=== PATIENT | female | born 1945 | race Caucasian/White ===

== ENCOUNTER 2018-02-07 22:48 | Inpatient (IN) | payer OTHER, MEDICAID ==
[~2018-02-07] VITALS: Ht 165.1 cm; Wt 102.5 kg
[2018-02-07 23:23] LABS: EOSINOPHILS % (AUTO) 0.2 % (0.0-6.0); HEMATOCRIT 35 % (33-45); HEMOGLOBIN 11.1 g/dL (11.5-14.8); LYMPHOCYTES # (AUTO) 0.5 /CMM (0.8-4.8); LYMPHOCYTES % (AUTO) 4.8 % (20.0-44.0); MEAN CORPUSCULAR HEMOGLOBIN 30 PG (26.0-33.0); MEAN CORPUSCULAR HGB CONC 32 g/dl (31.0-36.0); MEAN CORPUSCULAR VOLUME 94 fL (82-100); MONOCYTES # (AUTO) 0.1 /CMM (0.1-1.30); NEUTROPHILS # (AUTO) 9.3 /CMM (1.8-8.9); PLATELET COUNT (AUTO) 187 /CMM (150-450); RDW COEFFICIENT OF VARIATION 16.1 (11.5-15.0); RED BLOOD CELL COUNT(AUTO) 3.72 MIL/uL (4.0-5.2); WHITE BLOOD COUNT (AUTO) 9.9 K/uL (4.3-11.0)
[2018-02-07] MEDS ORDERED: IPRATROPIUM NEB FS 0.5 MG/2.5 ML AMPUL.NEB NEB ONE (23:30)
[2018-02-07] MEDS ORDERED: ALBUTEROL FS 2.5 MG/3 ML VIAL.NEB NEB ONE (23:30)
[2018-02-07] MEDS ORDERED: methylPREDNISolone SOD SUCC 125 MG/2ML VIAL IV ONE (23:30)
[2018-02-07] MEDS ORDERED: IV NS 0.9% 500 ML BAG IV ONE (23:30)
[2018-02-07 23:33] LABS: CALCIUM, SERUM 8.7 mg/dL (8.5-10.1); CARBON DIOXIDE 32 mmol/L (21-32); CHLORIDE 103 mmol/L (98-107); GLUCOSE 140 mg/dL (74-106); SODIUM SERUM 139 mmol/L (136-145); UREA NITROGEN, BLOOD 38 mg/dL (7-18)
[2018-02-07] MEDS ORDERED: methylPREDNISolone SOD SUCC 125 MG/2ML VIAL ONE (23:34)
[2018-02-07 23:42] LABS: TROPONIN I < 0.017 ng/mL (0.00-0.056)
[2018-02-07 23:47] LABS: ALANINE AMINOTRANSFERASE 738 U/L (12-78); ALBUMIN 2.3 g/dL (3.4-5.0); ALKALINE PHOSPHATASE 436 U/L (46-116); ASPARTATE AMINOTRANSFERASE 1597 U/L (15-37); B-TYPE NATRIURETIC PEPTIDE 3655 PG/ML (0-125); BILIRUBIN,DIRECT 1.9 mg/dL (0.0-0.2); BILIRUBIN,TOTAL 2.4 mg/dL (0.2-1.0); TOTAL PROTEIN, SERUM 5.7 g/dL (6.4-8.2)
[2018-02-07] MEDS ORDERED: ALBUTEROL FS 2.5 MG/3 ML VIAL.NEB ONE (23:51)
[2018-02-07] MEDS ORDERED: IPRATROPIUM NEB FS 0.5 MG/2.5 ML AMPUL.NEB ONE (23:52)
[2018-02-08] VITALS (46 sets, daily range): BP systolic 45–144; BP diastolic 20–91
[2018-02-08 00:13] LABS: ABG BASE EXCESS 0.8 mmol/L; ABG OXYGEN SATURATION 89.2 % (92.0-98.5); ABG PCO2 75.9 mmHg (35.0-45.0); ABG PH 7.216 (7.350-7.450); ABG PO2 67.4 mmHg (75.0-100.0); AaDO2 101.2 mmHg; COHb 1.1 % (0.5-1.5); MetHb 0.3 % (0.0-1.5); SITE, ABG Right Radial; VENT MODE, BG nasal cannula
[2018-02-08] MEDS ORDERED: NITROGLYCERIN PACKET 1 GM PACKET ONE (00:20)
[2018-02-08] MEDS ORDERED: FUROSEMIDE 40 MG/4 ML VIAL ONE (00:20)
[2018-02-08] MEDS ORDERED: METRONIDAZOLE 500MG/ NS 100ML 100 ML IV ONE ×2 (00:20→06:08)
[2018-02-08] MEDS ORDERED: LEVOFLOXACIN 750 MG /D5W 150ML 150 ML IV ONE (00:20)
[2018-02-08] MEDS ORDERED: LEVOFLOXACIN 750 MG /D5W 150ML PIGGYBACK IV ONE (00:30)
[2018-02-08] MEDS ORDERED: NITROGLYCERIN PACKET 1 GM PACKET TD ONE (00:30)
[2018-02-08] MEDS ORDERED: FUROSEMIDE 40 MG/4 ML VIAL IV ONE (00:30)
[2018-02-08] MEDS ORDERED: FLAGYL/NS RTU 500 MG/100 ML PIGGYBACK IV ONE (00:30)
[2018-02-08] MEDS ORDERED: HYDR-552 PO (00:44)
[2018-02-08] MEDS ORDERED: CARV6.252 PO (00:44)
[2018-02-08] MEDS ORDERED: LACT1CAP39 PO (00:44)
[2018-02-08] MEDS ORDERED: GUAI-959 PO (00:44)
[2018-02-08] MEDS ORDERED: NA P133E RC (00:44)
[2018-02-08] MEDS ORDERED: FERR325T23 PO (00:44)
[2018-02-08] MEDS ORDERED: CALC-494 PO (00:44)
[2018-02-08] MEDS ORDERED: ATOR20TA PO (00:44)
[2018-02-08] MEDS ORDERED: MELA3TAB PO (00:44)
[2018-02-08] MEDS ORDERED: ALLO100T PO (00:44)
[2018-02-08] MEDS ORDERED: MULT-213 PO (00:44)
[2018-02-08] MEDS ORDERED: AMIN30LI27 PO (00:44)
[2018-02-08] MEDS ORDERED: OXYC10TA49 PO (00:44)
[2018-02-08] MEDS ORDERED: GABA-534 PO (00:44)
[2018-02-08] MEDS ORDERED: ALBU2.5V38 NEB (00:44)
[2018-02-08] MEDS ORDERED: BISA-79 PR (00:44)
[2018-02-08] MEDS ORDERED: CHOL200026 PO (00:44)
[2018-02-08] MEDS ORDERED: INSU100V7 SQ (00:44)
[2018-02-08] MEDS ORDERED: OMEP20TA5 PO (00:44)
[2018-02-08] MEDS ORDERED: LACT10SO PO (00:44)
[2018-02-08] MEDS ORDERED: [UNRECOGNIZED DRUG - CODE] SQ (00:44)
[2018-02-08] MEDS ORDERED: INSU100I4 SQ (00:44)
[2018-02-08] MEDS ORDERED: ASPI-1169 PO (00:44)
[2018-02-08] MEDS ORDERED: ONDA4TAB11 PO (00:44)
[2018-02-08] MEDS ORDERED: ACET-868 PO (00:44)
[2018-02-08] MEDS ORDERED: ASCO500T10 PO (00:44)
[2018-02-08] MEDS ORDERED: MAGN400O21 PO (00:44)
[2018-02-08 01:12] LABS: ABG BASE EXCESS 0.6 mmol/L; ABG OXYGEN SATURATION 89.1 % (92.0-98.5); ABG PCO2 63.9 mmHg (35.0-45.0); ABG PH 7.269 (7.350-7.450); ABG PO2 63.4 mmHg (75.0-100.0); AaDO2 75.4 mmHg; COHb 0.7 % (0.5-1.5); MetHb 0.2 % (0.0-1.5); O2Hb 88.3 % (94.0-97.0); SITE, ABG Left Radial; VENT MODE, BG BIPAP 22/5 30% BR 18
[2018-02-08] MEDS ORDERED: HYDROMORPHONE 1 MG/1 ML DISP.SYRIN IV PRN (03:00)
[2018-02-08] MEDS ORDERED: ALBUTEROL FS 2.5 MG/3 ML VIAL.NEB NEB PRN (03:00)
[2018-02-08] MEDS ORDERED: IV NS 0.9% 1,000 ML IV SCH (03:00)
[2018-02-08] MEDS ORDERED: HYDROMORPHONE INJ 2 MG/ML DISP.SYRIN ONE (03:27)
[2018-02-08] MEDS ORDERED: DEXTROSE 50%-WATER 50 ML DISP.SYRIN IV PRN (03:30)
[2018-02-08] MEDS ORDERED: HYDROMORPHONE INJ 2 MG/ML DISP.SYRIN IV PRN (03:34)
[2018-02-08 05:33] LABS: HEMATOCRIT 34 % (33-45); HEMOGLOBIN 10.6 g/dL (11.5-14.8); LYMPHOCYTES # (AUTO) 0.4 /CMM (0.8-4.8); MEAN CORPUSCULAR HEMOGLOBIN 30 PG (26.0-33.0); MEAN CORPUSCULAR HGB CONC 32 g/dl (31.0-36.0); MEAN CORPUSCULAR VOLUME 95 fL (82-100); MONOCYTES # (AUTO) 0.1 /CMM (0.1-1.30); MONOCYTES % (AUTO) 0.5 % (2.0-12.0); NEUTROPHILS # (AUTO) 12.6 /CMM (1.8-8.9); NEUTROPHILS % (AUTO) 96.5 % (43.0-81.0); PLATELET COUNT (AUTO) 156 /CMM (150-450); RDW COEFFICIENT OF VARIATION 15.9 (11.5-15.0); RED BLOOD CELL COUNT(AUTO) 3.54 MIL/uL (4.0-5.2); WHITE BLOOD COUNT (AUTO) 13.1 K/uL (4.3-11.0)
[2018-02-08] MEDS: INSULIN REGULAR, HUMAN 100 UNIT/ML 3 ML VIAL SQ PRN ×2 (05:34→18:27)
[2018-02-08] MEDS: BLOOD SUGAR DIAGNOSTIC 1 EACH STRIP IN SCH ×3 (05:36→17:34)
[2018-02-08 05:58] LABS: ALANINE AMINOTRANSFERASE 749 U/L (12-78); ALBUMIN 2.2 g/dL (3.4-5.0); ALKALINE PHOSPHATASE 472 U/L (46-116); ASPARTATE AMINOTRANSFERASE 1128 U/L (15-37); BILIRUBIN,TOTAL 3.2 mg/dL (0.2-1.0); CALCIUM, SERUM 8.6 mg/dL (8.5-10.1); CARBON DIOXIDE 28 mmol/L (21-32); CHLORIDE 102 mmol/L (98-107); CREATININE 1.2 mg/dL (0.6-1.3); GLUCOSE 210 mg/dL (74-106); POTASSIUM 4.5 mmol/L (3.5-5.1); SODIUM SERUM 138 mmol/L (136-145); TOTAL PROTEIN, SERUM 5.6 g/dL (6.4-8.2); UREA NITROGEN, BLOOD 41 mg/dL (7-18)
[2018-02-08] MEDS ORDERED: BLOOD SUGAR DIAGNOSTIC 1 EACH STRIP IN SCH (06:00)
[2018-02-08] MEDS ORDERED: ALBUTEROL FS 2.5 MG/3 ML VIAL.NEB NEB SCH (06:00)
[2018-02-08] MEDS ORDERED: methylPREDNISolone SOD SUCC 40 MG/ML VIAL IV SCH (06:00)
[2018-02-08] MEDS ORDERED: METRONIDAZOLE 500MG/ NS 100ML 500 MG in PREMIX 1 EA IV SCH (07:00)
[2018-02-08 08:21] LABS: ABG BASE EXCESS 1.3 mmol/L; ABG OXYGEN SATURATION 91.4 % (92.0-98.5); ABG PCO2 72.8 mmHg (35.0-45.0); ABG PH 7.234 (7.350-7.450); ABG PO2 70.8 mmHg (75.0-100.0); AaDO2 42.9 mmHg; COHb 0.6 % (0.5-1.5); MetHb 0.3 % (0.0-1.5); O2Hb 90.6 % (94.0-97.0); SITE, ABG Left Radial; VENT MODE, BG Nasal Cannula
[2018-02-08] MEDS ORDERED: MORPHINE SULFATE INJ 2 MG/ML DISP.SYRIN IV PRN (08:30)
[2018-02-08] MEDS: ALLOPURINOL 100 MG TABLET PO SCH ×2 (08:37→17:31)
[2018-02-08] MEDS: PANTOPRAZOLE 40 MG VIAL IV SCH (08:37)
[2018-02-08] MEDS: HEPARIN SODIUM, PORCINE 5000 UNITS/1 ML VIAL SQ SCH ×2 (08:39→20:18)
[2018-02-08] MEDS ORDERED: INSULIN GLARGINE, 100 UNIT/ML CARTRIDGE SQ SCH (09:00)
[2018-02-08 09:04] LABS: APPEARANCE,URINE CLOUDY (CLEAR); BILIRUBIN,URINE NEGATIVE (NEGATIVE); BLOOD, URINE 1+ Ery/uL (NEGATIVE); COLOR,URINE DARK YELLO (YELLOW); KETONES,URINE NEGATIVE (NEGATIVE); LEUKOCYTE ESTERASE ,URINE 3+ (NEGATIVE); NITRITE, URINE NEGATIVE (NEGATIVE); PH,URINE 5.5 (5.0-8.0); PROTEIN,URINE TRACE mg/dl (NEGATIVE); UGLUCOSE NEGATIVE (NEGATIVE); UROBILINOGEN,URINE 0.2 EU/dL (0.2)
[2018-02-08 10:05] LABS: BACTERIA,URINE Few /HPF (None Seen); SQUAMOUS EPITHELIAL CELL,UR Few /HPF (None Seen); WBC,URINE TOO NUMEROUS TO COUN /HPF (0-3); YEAST,URINE Moderate /HPF (None Seen)
[2018-02-08] MEDS ORDERED: NOREPINEPHRINE 16 MG in IV D5W 500 ML IV PRN (10:30)
[2018-02-08] MEDS ORDERED: FEE PK DOSING 1 MIN EA MC ONE (10:38)
[2018-02-08] MEDS: ACETAMINOPHEN 325 MG TABLET PO PRN ×2 (11:03→17:31)
[2018-02-08 11:14] LABS: ABG BASE EXCESS 2.5 mmol/L; ABG PCO2 56.3 mmHg (35.0-45.0); ABG PH 7.334 (7.350-7.450); AaDO2 53.8 mmHg; COHb 0.2 % (0.5-1.5); MetHb 0.3 % (0.0-1.5); O2Hb 94.5 % (94.0-97.0); SITE, ABG Left Radial; VENT MODE, BG ST 22/5 20 30%
[2018-02-08] MEDS: MEROPENEM 1 G in IV NS 0.9% 100 ML IV SCH ×2 (11:31→22:27)
[2018-02-08] MEDS: INSULIN GLARGINE, 100 UNIT/ML CARTRIDGE SQ SCH (11:31)
[2018-02-08] MEDS: VANCOMYCIN 1 GM in IV D5W 250 ML IV SCH (12:11)
[2018-02-08] MEDS: methylPREDNISolone SOD SUCC 40 MG/ML VIAL IV SCH ×2 (12:26→20:17)
[2018-02-08] MEDS: ALBUTEROL FS 2.5 MG/3 ML VIAL.NEB NEB SCH ×2 (14:32→20:25)
[2018-02-09] VITALS (15 sets, daily range): BP systolic 96–149; BP diastolic 43–90
[2018-02-09] MEDS: VANCOMYCIN 1 GM in IV D5W 250 ML IV SCH (00:07)
[2018-02-09] MEDS: BLOOD SUGAR DIAGNOSTIC 1 EACH STRIP IN SCH ×5 (00:07→23:24)
[2018-02-09] MEDS: INSULIN REGULAR, HUMAN 100 UNIT/ML 3 ML VIAL SQ PRN ×5 (00:19→23:29)
[2018-02-09] MEDS: ALBUTEROL FS 2.5 MG/3 ML VIAL.NEB NEB SCH ×4 (01:30→19:16)
[2018-02-09] MEDS: methylPREDNISolone SOD SUCC 40 MG/ML VIAL IV SCH ×2 (04:27→17:12)
[2018-02-09 04:37] LABS: BASOPHILS % (AUTO) 0.1 % (0.0-2.0); HEMATOCRIT 31 % (33-45); LYMPHOCYTES # (AUTO) 0.6 /CMM (0.8-4.8); LYMPHOCYTES % (AUTO) 5.5 % (20.0-44.0); MEAN CORPUSCULAR HEMOGLOBIN 30 PG (26.0-33.0); MEAN CORPUSCULAR HGB CONC 32 g/dl (31.0-36.0); MEAN CORPUSCULAR VOLUME 93 fL (82-100); MONOCYTES # (AUTO) 0.2 /CMM (0.1-1.30); MONOCYTES % (AUTO) 1.7 % (2.0-12.0); NEUTROPHILS # (AUTO) 10.2 /CMM (1.8-8.9); NEUTROPHILS % (AUTO) 92.7 % (43.0-81.0); PLATELET COUNT (AUTO) 164 /CMM (150-450); RDW COEFFICIENT OF VARIATION 16.1 (11.5-15.0); RED BLOOD CELL COUNT(AUTO) 3.35 MIL/uL (4.0-5.2)
[2018-02-09 04:44] LABS: ALANINE AMINOTRANSFERASE 490 U/L (12-78); ALBUMIN 2.1 g/dL (3.4-5.0); ALKALINE PHOSPHATASE 388 U/L (46-116); ASPARTATE AMINOTRANSFERASE 339 U/L (15-37); CALCIUM, SERUM 8.3 mg/dL (8.5-10.1); CARBON DIOXIDE 29 mmol/L (21-32); CHLORIDE 102 mmol/L (98-107); CREATININE 1.6 mg/dL (0.6-1.3); GLUCOSE 260 mg/dL (74-106); POTASSIUM 4.2 mmol/L (3.5-5.1); SODIUM SERUM 138 mmol/L (136-145); TOTAL PROTEIN, SERUM 5.4 g/dL (6.4-8.2); UREA NITROGEN, BLOOD 46 mg/dL (7-18)
[2018-02-09] MEDS ORDERED: LEVOFLOXACIN 500 MG /D5W 100ML 500 MG in PREMIX 1 EA IV SCH (06:00)
[2018-02-09] MEDS: ACETAMINOPHEN 325 MG TABLET PO PRN ×2 (07:03→21:01)
[2018-02-09] MEDS: PANTOPRAZOLE 40 MG VIAL IV SCH (08:32)
[2018-02-09] MEDS: ALLOPURINOL 100 MG TABLET PO SCH ×2 (08:32→17:12)
[2018-02-09] MEDS: HEPARIN SODIUM, PORCINE 5000 UNITS/1 ML VIAL SQ SCH ×2 (08:35→21:02)
[2018-02-09] MEDS: INSULIN GLARGINE, 100 UNIT/ML CARTRIDGE SQ SCH (08:35)
[2018-02-09 09:36] LABS: ABG BASE EXCESS 2.2 mmol/L; ABG OXYGEN SATURATION 94.6 % (92.0-98.5); ABG PCO2 49.8 mmHg (35.0-45.0); ABG PH 7.369 (7.350-7.450); ABG PO2 92.8 mmHg (75.0-100.0); AaDO2 48.1 mmHg; COHb 0.3 % (0.5-1.5); MetHb 0.2 % (0.0-1.5); O2Hb 94.1 % (94.0-97.0); SITE, ABG Left Radial; VENT MODE, BG NASAL CANNULA
[2018-02-09] MEDS: MEROPENEM 1 G in IV NS 0.9% 100 ML IV SCH ×2 (10:17→23:20)
[2018-02-09] MEDS: MORPHINE SULFATE INJ 4 MG/ML DISP.SYRIN IV PRN ×2 (13:10→17:11)
[2018-02-09] MEDS: VANCOMYCIN 0.75 GM in IV D5W 250 ML IV SCH (13:26)
[2018-02-09] MEDS: GUAIFENESIN 300 MG/15 ML UDC PO PRN ×2 (15:47→21:09)
[2018-02-09] MEDS: LACTOBACILLUS RHAMNOSUS GG 1 EACH CAP.SPRINK PO SCH (17:12)
[2018-02-09] MEDS: HYDROCODONE/APAP 5/325MG 1 EACH TABLET PO PRN (23:21)
[2018-02-10] VITALS (9 sets, daily range): BP systolic 114–161; BP diastolic 44–75
[2018-02-10] MEDS: VANCOMYCIN 0.75 GM in IV D5W 250 ML IV SCH ×2 (00:26→12:00)
[2018-02-10] MEDS: ALBUTEROL FS 2.5 MG/3 ML VIAL.NEB NEB SCH ×4 (00:52→19:54)
[2018-02-10] MEDS: HYDROCODONE/APAP 5/325MG 1 EACH TABLET PO PRN ×3 (05:13→21:41)
[2018-02-10] MEDS: INSULIN REGULAR, HUMAN 100 UNIT/ML 3 ML VIAL SQ PRN ×3 (05:46→18:38)
[2018-02-10] MEDS: GUAIFENESIN 300 MG/15 ML UDC PO PRN (06:01)
[2018-02-10] MEDS: BLOOD SUGAR DIAGNOSTIC 1 EACH STRIP IN SCH ×3 (06:09→18:38)
[2018-02-10] MEDS: IV NS 0.9% 250 ML IV PRN (06:09)
[2018-02-10 06:42] LABS: CARBON DIOXIDE 31 mmol/L (21-32); CHLORIDE 101 mmol/L (98-107); CREATININE 1.4 mg/dL (0.6-1.3); GLUCOSE 228 mg/dL (74-106); POTASSIUM 4.3 mmol/L (3.5-5.1); SODIUM SERUM 136 mmol/L (136-145); UREA NITROGEN, BLOOD 45 mg/dL (7-18)
[2018-02-10 06:47] LABS: CALCIUM, SERUM 8.3 mg/dL (8.5-10.1)
[2018-02-10] MEDS: methylPREDNISolone SOD SUCC 40 MG/ML VIAL IV SCH (08:59)
[2018-02-10] MEDS: HEPARIN SODIUM, PORCINE 5000 UNITS/1 ML VIAL SQ SCH ×2 (09:02→20:40)
[2018-02-10] MEDS: ALLOPURINOL 100 MG TABLET PO SCH ×2 (09:02→16:44)
[2018-02-10] MEDS: LACTOBACILLUS RHAMNOSUS GG 1 EACH CAP.SPRINK PO SCH ×2 (09:02→16:44)
[2018-02-10] MEDS: PANTOPRAZOLE 40 MG VIAL IV SCH (09:10)
[2018-02-10] MEDS: ACETAMINOPHEN 325 MG TABLET PO PRN (09:10)
[2018-02-10 09:23] LABS: ALBUMIN 2.4 g/dL (3.4-5.0); BILIRUBIN,DIRECT 0.2 mg/dL (0.0-0.2); BILIRUBIN,TOTAL 0.6 mg/dL (0.2-1.0); TOTAL PROTEIN, SERUM 5.9 g/dL (6.4-8.2)
[2018-02-10] MEDS: INSULIN GLARGINE, 100 UNIT/ML CARTRIDGE SQ SCH (09:46)
[2018-02-10] MEDS ORDERED: MINERAL OIL/PETROLATUM,WHITE 120 GM JAR TP PRN (10:30)
[2018-02-10] MEDS: HYDROGEL DRESSING 90 GM TUBE TP SCH (10:30)
[2018-02-10] MEDS: Z GUARD REMEDY 2 OZ OINT TP SCH (10:30)
[2018-02-10] MEDS: MEROPENEM 1 G in IV NS 0.9% 100 ML IV SCH (11:18)
[2018-02-10] MEDS: HYDROGEL DRESSING 90 GM TUBE TP PRN ×3 (12:52→12:58)
[2018-02-10] MEDS: Z GUARD REMEDY 2 OZ OINT TP PRN ×3 (12:53→12:58)
[2018-02-10] MEDS ORDERED: IOHEXOL 240MG/ML 0 ML IV ONE (13:08)
[2018-02-10] MEDS ORDERED: IOHEXOL-300 100 ML VIAL IV ONE (13:30)
[2018-02-10] MEDS ORDERED: LEVOFLOXACIN (500MG) 500 MG TABLET PO ONE (14:30)
[2018-02-10] MEDS: ONDANSETRON HCL/PF 4 MG/2 ML VIAL IV PRN (20:34)
[2018-02-11] VITALS: BP 142/50
[2018-02-11] MEDS: ACETAMINOPHEN 325 MG TABLET PO PRN (00:42)
[2018-02-11] MEDS: ALBUTEROL FS 2.5 MG/3 ML VIAL.NEB NEB SCH ×4 (00:47→20:03)
[2018-02-11] MEDS: INSULIN REGULAR, HUMAN 100 UNIT/ML 3 ML VIAL SQ PRN ×4 (00:48→21:36)
[2018-02-11 04:00] VITALS: BP 138/54
[2018-02-11] MEDS: HYDROCODONE/APAP 5/325MG 1 EACH TABLET PO PRN ×3 (04:35→21:24)
[2018-02-11] MEDS: GUAIFENESIN 300 MG/15 ML UDC PO PRN (04:44)
[2018-02-11] MEDS: BLOOD SUGAR DIAGNOSTIC 1 EACH STRIP IN SCH ×5 (05:59→21:33)
[2018-02-11 07:52] LABS: BASOPHILS % (AUTO) 0.3 % (0.0-2.0); EOSINOPHILS % (AUTO) 0.1 % (0.0-6.0); HEMATOCRIT 30 % (33-45); HEMOGLOBIN 9.8 g/dL (11.5-14.8); LYMPHOCYTES # (AUTO) 1.1 /CMM (0.8-4.8); LYMPHOCYTES % (AUTO) 10.1 % (20.0-44.0); MEAN CORPUSCULAR HEMOGLOBIN 30 PG (26.0-33.0); MEAN CORPUSCULAR HGB CONC 32 g/dl (31.0-36.0); MEAN CORPUSCULAR VOLUME 92 fL (82-100); MONOCYTES # (AUTO) 0.5 /CMM (0.1-1.30); MONOCYTES % (AUTO) 4.9 % (2.0-12.0); NEUTROPHILS # (AUTO) 9.2 /CMM (1.8-8.9); NEUTROPHILS % (AUTO) 84.6 % (43.0-81.0); PLATELET COUNT (AUTO) 158 /CMM (150-450); RDW COEFFICIENT OF VARIATION 15.9 (11.5-15.0); RED BLOOD CELL COUNT(AUTO) 3.28 MIL/uL (4.0-5.2); WHITE BLOOD COUNT (AUTO) 10.9 K/uL (4.3-11.0)
[2018-02-11 08:00] VITALS: BP 157/59
[2018-02-11 08:09] LABS: ALANINE AMINOTRANSFERASE 182 U/L (12-78); ALBUMIN 2.1 g/dL (3.4-5.0); ALKALINE PHOSPHATASE 248 U/L (46-116); ASPARTATE AMINOTRANSFERASE 24 U/L (15-37); BILIRUBIN,TOTAL 0.6 mg/dL (0.2-1.0); CALCIUM, SERUM 8.4 mg/dL (8.5-10.1); CARBON DIOXIDE 28 mmol/L (21-32); CHLORIDE 102 mmol/L (98-107); CREATININE 1.2 mg/dL (0.6-1.3); GLUCOSE 157 mg/dL (74-106); SODIUM SERUM 138 mmol/L (136-145); TOTAL PROTEIN, SERUM 5.2 g/dL (6.4-8.2); UREA NITROGEN, BLOOD 46 mg/dL (7-18)
[2018-02-11] MEDS: ALLOPURINOL 100 MG TABLET PO SCH ×2 (08:30→17:00)
[2018-02-11] MEDS: PANTOPRAZOLE 40 MG VIAL IV SCH (08:30)
[2018-02-11] MEDS: LACTOBACILLUS RHAMNOSUS GG 1 EACH CAP.SPRINK PO SCH ×2 (08:31→17:00)
[2018-02-11] MEDS: HEPARIN SODIUM, PORCINE 5000 UNITS/1 ML VIAL SQ SCH ×2 (08:45→21:28)
[2018-02-11] MEDS ORDERED: methylPREDNISolone SOD SUCC 40 MG/ML VIAL IV SCH (09:00)
[2018-02-11] MEDS: FLUCONAZOLE (100 MG) 100 MG TABLET PO SCH (09:00)
[2018-02-11] MEDS ORDERED: VANCOMYCIN 0.75 GM in IV NS 0.9% 250 ML IV SCH (09:00)
[2018-02-11] MEDS: Z GUARD REMEDY 2 OZ OINT TP SCH (09:55)
[2018-02-11] MEDS: HYDROGEL DRESSING 90 GM TUBE TP SCH (09:55)
[2018-02-11] MEDS: INSULIN GLARGINE, 100 UNIT/ML CARTRIDGE SQ SCH (09:56)
[2018-02-11 12:00] VITALS: BP 154/60
[2018-02-11] MEDS: LEVOFLOXACIN (250MG) 250 MG TABLET PO SCH (15:10)
[2018-02-11 16:00] VITALS: BP 140/57
[2018-02-11 20:00] VITALS: BP 128/54
[2018-02-12] VITALS: BP_SYST 113; BP_SYST 125; BP_DIAS 42; BP_DIAS 86
[2018-02-12] MEDS: ACETAMINOPHEN 325 MG TABLET PO PRN (00:31)
[2018-02-12] MEDS: GUAIFENESIN 300 MG/15 ML UDC PO PRN ×2 (00:51→17:46)
[2018-02-12] MEDS: ALBUTEROL FS 2.5 MG/3 ML VIAL.NEB NEB SCH ×4 (01:19→19:30)
[2018-02-12 04:00] VITALS: BP 122/86
[2018-02-12] MEDS: HYDROCODONE/APAP 5/325MG 1 EACH TABLET PO PRN ×4 (04:14→20:15)
[2018-02-12 07:07] LABS: ALANINE AMINOTRANSFERASE 115 U/L (12-78); ALBUMIN 2.1 g/dL (3.4-5.0); ALKALINE PHOSPHATASE 200 U/L (46-116); ASPARTATE AMINOTRANSFERASE 16 U/L (15-37); BILIRUBIN,TOTAL 0.6 mg/dL (0.2-1.0); CALCIUM, SERUM 8.4 mg/dL (8.5-10.1); CARBON DIOXIDE 32 mmol/L (21-32); CHLORIDE 107 mmol/L (98-107); GLUCOSE 108 mg/dL (74-106); POTASSIUM 3.8 mmol/L (3.5-5.1); SODIUM SERUM 141 mmol/L (136-145); TOTAL PROTEIN, SERUM 4.8 g/dL (6.4-8.2); UREA NITROGEN, BLOOD 41 mg/dL (7-18)
[2018-02-12 08:00] VITALS: BP 120/69
[2018-02-12] MEDS: PANTOPRAZOLE 40 MG VIAL IV SCH (08:27)
[2018-02-12] MEDS: BLOOD SUGAR DIAGNOSTIC 1 EACH STRIP IN SCH ×4 (08:27→21:30)
[2018-02-12] MEDS: FLUCONAZOLE (100 MG) 100 MG TABLET PO SCH (10:00)
[2018-02-12] MEDS: INSULIN GLARGINE, 100 UNIT/ML CARTRIDGE SQ SCH (10:00)
[2018-02-12] MEDS: LACTOBACILLUS RHAMNOSUS GG 1 EACH CAP.SPRINK PO SCH ×2 (10:00→16:26)
[2018-02-12] MEDS: ALLOPURINOL 100 MG TABLET PO SCH ×2 (10:00→16:26)
[2018-02-12] MEDS: HYDROGEL DRESSING 90 GM TUBE TP SCH (10:00)
[2018-02-12] MEDS: Z GUARD REMEDY 2 OZ OINT TP SCH (10:00)
[2018-02-12] MEDS: HEPARIN SODIUM, PORCINE 5000 UNITS/1 ML VIAL SQ SCH ×2 (10:02→20:21)
[2018-02-12 12:00] VITALS: BP 108/46
[2018-02-12 12:08] LABS: INR 1.02 (0.87-1.13)
[2018-02-12] MEDS: LEVOFLOXACIN (250MG) 250 MG TABLET PO SCH (14:55)
[2018-02-12 16:00] VITALS: BP 123/51
[2018-02-12 20:00] VITALS: BP 130/50
[2018-02-13] VITALS: BP 113/86
[2018-02-13] MEDS: ALBUTEROL FS 2.5 MG/3 ML VIAL.NEB NEB SCH ×4 (00:51→19:36)
[2018-02-13] MEDS: HYDROCODONE/APAP 5/325MG 1 EACH TABLET PO PRN ×3 (02:30→21:37)
[2018-02-13 04:00] VITALS: BP 117/49
[2018-02-13 08:00] VITALS: BP 125/59
[2018-02-13] MEDS: ALLOPURINOL 100 MG TABLET PO SCH ×2 (08:25→17:00)
[2018-02-13] MEDS: PANTOPRAZOLE 40 MG VIAL IV SCH (08:25)
[2018-02-13] MEDS: BLOOD SUGAR DIAGNOSTIC 1 EACH STRIP IN SCH ×4 (08:26→21:39)
[2018-02-13] MEDS: HEPARIN SODIUM, PORCINE 5000 UNITS/1 ML VIAL SQ SCH ×2 (08:26→21:00)
[2018-02-13] MEDS: LACTOBACILLUS RHAMNOSUS GG 1 EACH CAP.SPRINK PO SCH ×2 (08:26→17:00)
[2018-02-13] MEDS: HYDROGEL DRESSING 90 GM TUBE TP PRN (08:28)
[2018-02-13] MEDS: Z GUARD REMEDY 2 OZ OINT TP PRN (08:28)
[2018-02-13] MEDS: HYDROGEL DRESSING 90 GM TUBE TP SCH (08:29)
[2018-02-13] MEDS: Z GUARD REMEDY 2 OZ OINT TP SCH (08:29)
[2018-02-13] MEDS: FLUCONAZOLE (100 MG) 100 MG TABLET PO SCH (08:31)
[2018-02-13 12:00] VITALS: BP 129/92
[2018-02-13] MEDS: INSULIN GLARGINE, 100 UNIT/ML CARTRIDGE SQ SCH (12:27)
[2018-02-13] MEDS: LEVOFLOXACIN (250MG) 250 MG TABLET PO SCH (17:00)
[2018-02-13] MEDS: IV NS 0.9% 250 ML IV PRN (17:12)
[2018-02-13 20:00] VITALS: BP 136/62
[2018-02-14] VITALS (36 sets, daily range): BP systolic 110–154; BP diastolic 51–71
[2018-02-14] MEDS: ALBUTEROL FS 2.5 MG/3 ML VIAL.NEB NEB SCH ×4 (00:56→19:59)
[2018-02-14] MEDS: BLOOD SUGAR DIAGNOSTIC 1 EACH STRIP IN SCH ×4 (06:46→22:13)
[2018-02-14 07:23] LABS: BASOPHILS % (AUTO) 0.2 % (0.0-2.0); EOSINOPHILS # (AUTO) 0.4 /CMM (0.0-0.7); EOSINOPHILS % (AUTO) 5.6 % (0.0-6.0); HEMATOCRIT 32 % (33-45); HEMOGLOBIN 10.1 g/dL (11.5-14.8); LYMPHOCYTES # (AUTO) 1.4 /CMM (0.8-4.8); LYMPHOCYTES % (AUTO) 19.3 % (20.0-44.0); MEAN CORPUSCULAR HEMOGLOBIN 30 PG (26.0-33.0); MEAN CORPUSCULAR HGB CONC 32 g/dl (31.0-36.0); MEAN CORPUSCULAR VOLUME 92 fL (82-100); MONOCYTES # (AUTO) 0.4 /CMM (0.1-1.30); MONOCYTES % (AUTO) 5.3 % (2.0-12.0); NEUTROPHILS # (AUTO) 5.2 /CMM (1.8-8.9); NEUTROPHILS % (AUTO) 69.6 % (43.0-81.0); PLATELET COUNT (AUTO) 155 /CMM (150-450); RDW COEFFICIENT OF VARIATION 15.6 (11.5-15.0); RED BLOOD CELL COUNT(AUTO) 3.42 MIL/uL (4.0-5.2); WHITE BLOOD COUNT (AUTO) 7.5 K/uL (4.3-11.0)
[2018-02-14] MEDS: PANTOPRAZOLE 40 MG VIAL IV SCH (07:30)
[2018-02-14 07:35] LABS: INR 0.99 (0.87-1.13)
[2018-02-14 07:37] LABS: ALANINE AMINOTRANSFERASE 62 U/L (12-78); ALBUMIN 2.3 g/dL (3.4-5.0); ALKALINE PHOSPHATASE 176 U/L (46-116); ASPARTATE AMINOTRANSFERASE 12 U/L (15-37); BILIRUBIN,TOTAL 0.8 mg/dL (0.2-1.0); CALCIUM, SERUM 8.8 mg/dL (8.5-10.1); CARBON DIOXIDE 31 mmol/L (21-32); CHLORIDE 105 mmol/L (98-107); CREATININE 0.7 mg/dL (0.6-1.3); GLUCOSE 154 mg/dL (74-106); POTASSIUM 4.2 mmol/L (3.5-5.1); SODIUM SERUM 140 mmol/L (136-145); TOTAL PROTEIN, SERUM 5.2 g/dL (6.4-8.2); UREA NITROGEN, BLOOD 23 mg/dL (7-18)
[2018-02-14 08:04] LABS: MAGNESIUM 1.4 mg/dL (1.8-2.4); PHOSPHORUS 2.9 mg/dL (2.5-4.9)
[2018-02-14 08:16] LABS: THYROID STIMULATING HORMONE 1.661 uIU/mL (0.358-3.74)
[2018-02-14] MEDS ORDERED: BUPIVACAINE 0.5 % PF 150 MG/30 ML VIAL ONE (08:39)
[2018-02-14] MEDS ORDERED: LIDOCAINE 1%-EPI 1:100,000 20 ML VIAL ONE (08:39)
[2018-02-14] MEDS: LACTOBACILLUS RHAMNOSUS GG 1 EACH CAP.SPRINK PO SCH ×2 (08:42→17:59)
[2018-02-14] MEDS: FLUCONAZOLE (100 MG) 100 MG TABLET PO SCH (08:43)
[2018-02-14] MEDS: ALLOPURINOL 100 MG TABLET PO SCH ×2 (08:43→17:59)
[2018-02-14] MEDS ORDERED: FENTANYL PF 100MCG/2ML AMPUL ONE ×4 (08:57→12:06)
[2018-02-14] MEDS ORDERED: FENTANYL PF 250MCG/5ML AMPUL ONE (08:57)
[2018-02-14] MEDS ORDERED: ROCURONIUM BROMIDE 50 MG/5 ML ONE (08:57)
[2018-02-14] MEDS ORDERED: MIDAZOLAM HCL 2 MG/2ML VIAL ONE (08:57)
[2018-02-14] MEDS: INSULIN GLARGINE, 100 UNIT/ML CARTRIDGE SQ SCH (09:00)
[2018-02-14] MEDS ORDERED: METRONIDAZOLE 500MG/ NS 100ML 100 ML IV ONE (09:27)
[2018-02-14] MEDS ORDERED: hydrALAZINE HCL IV 20 MG VIAL ONE (10:02)
[2018-02-14] MEDS ORDERED: CELLULOSE,OXIDIZED 1 EA PACK MC ONE (10:03)
[2018-02-14] MEDS ORDERED: ONDANSETRON HCL/PF 4 MG/2 ML VIAL ONE (11:35)
[2018-02-14] MEDS: Magnesium 1GM/D5W 100ML PREMIX 100 ML IV SCH ×3 (12:06→13:01)
[2018-02-14 12:07] LABS: ABG OXYGEN SATURATION 95.6 % (92.0-98.5); ABG PCO2 45.5 mmHg (35.0-45.0); ABG PH 7.395 (7.350-7.450); ABG PO2 113.5 mmHg (75.0-100.0); AaDO2 191.8 mmHg; MetHb 0.3 % (0.0-1.5); O2Hb 95.3 % (94.0-97.0); SITE, ABG Left Radial; VENT MODE, BG SM 6L
[2018-02-14] MEDS: HYDROGEL DRESSING 90 GM TUBE TP SCH (12:07)
[2018-02-14] MEDS: Z GUARD REMEDY 2 OZ OINT TP SCH (12:08)
[2018-02-14] MEDS: METRONIDAZOLE 500MG/ NS 100ML 100 ML IV SCH ×2 (12:11→20:34)
[2018-02-14] MEDS: MORPHINE SULFATE INJ 4 MG/ML DISP.SYRIN IV PRN (13:01)
[2018-02-14] MEDS: ONDANSETRON HCL/PF 4 MG/2 ML VIAL IV PRN ×2 (13:10→22:33)
[2018-02-14] MEDS: HYDROCODONE/APAP 5/325MG 1 EACH TABLET PO PRN ×2 (15:37→22:23)
[2018-02-14] MEDS: LEVOFLOXACIN (250MG) 250 MG TABLET PO SCH (15:37)
[2018-02-14] MEDS: INSULIN REGULAR, HUMAN 100 UNIT/ML 3 ML VIAL SQ PRN ×2 (18:32→22:20)
[2018-02-15] VITALS (27 sets, daily range): BP systolic 116–163; BP diastolic 48–98
[2018-02-15] MEDS: ALBUTEROL FS 2.5 MG/3 ML VIAL.NEB NEB SCH ×4 (02:00→19:17)
[2018-02-15] MEDS: ACETAMINOPHEN 325 MG TABLET PO PRN (02:18)
[2018-02-15] MEDS: MORPHINE SULFATE INJ 4 MG/ML DISP.SYRIN IV PRN (03:30)
[2018-02-15] MEDS: ONDANSETRON HCL/PF 4 MG/2 ML VIAL IV PRN (03:43)
[2018-02-15 04:58] LABS: BASOPHILS % (AUTO) 0.1 % (0.0-2.0); EOSINOPHILS % (AUTO) 0.3 % (0.0-6.0); HEMATOCRIT 31 % (33-45); HEMOGLOBIN 10.2 g/dL (11.5-14.8); LYMPHOCYTES # (AUTO) 0.9 /CMM (0.8-4.8); LYMPHOCYTES % (AUTO) 7.4 % (20.0-44.0); MEAN CORPUSCULAR HEMOGLOBIN 30 PG (26.0-33.0); MEAN CORPUSCULAR HGB CONC 33 g/dl (31.0-36.0); MEAN CORPUSCULAR VOLUME 90 fL (82-100); MONOCYTES # (AUTO) 0.7 /CMM (0.1-1.30); NEUTROPHILS # (AUTO) 10.4 /CMM (1.8-8.9); NEUTROPHILS % (AUTO) 86.2 % (43.0-81.0); PLATELET COUNT (AUTO) 172 /CMM (150-450); RDW COEFFICIENT OF VARIATION 14.6 (11.5-15.0); WHITE BLOOD COUNT (AUTO) 11.9 K/uL (4.3-11.0)
[2018-02-15 05:24] LABS: ALANINE AMINOTRANSFERASE 81 U/L (12-78); ALBUMIN 2.5 g/dL (3.4-5.0); ALKALINE PHOSPHATASE 159 U/L (46-116); ASPARTATE AMINOTRANSFERASE 58 U/L (15-37); BILIRUBIN,TOTAL 0.9 mg/dL (0.2-1.0); CALCIUM, SERUM 8.8 mg/dL (8.5-10.1); CARBON DIOXIDE 31 mmol/L (21-32); CHLORIDE 103 mmol/L (98-107); GLUCOSE 179 mg/dL (74-106); POTASSIUM 3.8 mmol/L (3.5-5.1); SODIUM SERUM 140 mmol/L (136-145); TOTAL PROTEIN, SERUM 5.3 g/dL (6.4-8.2); UREA NITROGEN, BLOOD 25 mg/dL (7-18)
[2018-02-15] MEDS: HYDROCODONE/APAP 5/325MG 1 EACH TABLET PO PRN ×4 (07:20→23:49)
[2018-02-15] MEDS: BLOOD SUGAR DIAGNOSTIC 1 EACH STRIP IN SCH ×4 (07:30→21:39)
[2018-02-15] MEDS: PANTOPRAZOLE 40 MG VIAL IV SCH (07:47)
[2018-02-15] MEDS: LACTOBACILLUS RHAMNOSUS GG 1 EACH CAP.SPRINK PO SCH ×2 (08:19→16:45)
[2018-02-15] MEDS: FLUCONAZOLE (100 MG) 100 MG TABLET PO SCH (08:19)
[2018-02-15] MEDS: ALLOPURINOL 100 MG TABLET PO SCH ×2 (08:19→16:45)
[2018-02-15] MEDS: INSULIN REGULAR, HUMAN 100 UNIT/ML 3 ML VIAL SQ PRN ×3 (08:21→21:39)
[2018-02-15] MEDS: INSULIN GLARGINE, 100 UNIT/ML CARTRIDGE SQ SCH (08:23)
[2018-02-15] MEDS: Z GUARD REMEDY 2 OZ OINT TP SCH (08:23)
[2018-02-15] MEDS: HYDROGEL DRESSING 90 GM TUBE TP SCH (08:24)
[2018-02-15] MEDS: IV NS 0.9% 1,000 ML IV PRN (10:59)
[2018-02-15] MEDS: LEVOFLOXACIN (250MG) 250 MG TABLET PO SCH (14:32)
[2018-02-16] VITALS: BP 144/110
[2018-02-16] MEDS: ALBUTEROL FS 2.5 MG/3 ML VIAL.NEB NEB SCH ×3 (00:44→13:18)
[2018-02-16 04:00] VITALS: BP 129/61
[2018-02-16] MEDS: IV NS 0.9% 1,000 ML IV PRN (05:11)
[2018-02-16] MEDS: HYDROCODONE/APAP 5/325MG 1 EACH TABLET PO PRN ×2 (05:15→12:30)
[2018-02-16 06:29] LABS: BASOPHILS # (AUTO) 0.1 /CMM (0.0-0.2); BASOPHILS % (AUTO) 0.6 % (0.0-2.0); EOSINOPHILS # (AUTO) 0.2 /CMM (0.0-0.7); EOSINOPHILS % (AUTO) 1.9 % (0.0-6.0); HEMATOCRIT 26 % (33-45); HEMOGLOBIN 8.2 g/dL (11.5-14.8); LYMPHOCYTES # (AUTO) 1.2 /CMM (0.8-4.8); LYMPHOCYTES % (AUTO) 14.5 % (20.0-44.0); MEAN CORPUSCULAR HEMOGLOBIN 29 PG (26.0-33.0); MEAN CORPUSCULAR HGB CONC 32 g/dl (31.0-36.0); MEAN CORPUSCULAR VOLUME 92 fL (82-100); MONOCYTES # (AUTO) 0.5 /CMM (0.1-1.30); MONOCYTES % (AUTO) 5.9 % (2.0-12.0); NEUTROPHILS # (AUTO) 6.6 /CMM (1.8-8.9); NEUTROPHILS % (AUTO) 77.1 % (43.0-81.0); PLATELET COUNT (AUTO) 137 /CMM (150-450); RDW COEFFICIENT OF VARIATION 15.8 (11.5-15.0); RED BLOOD CELL COUNT(AUTO) 2.79 MIL/uL (4.0-5.2); WHITE BLOOD COUNT (AUTO) 8.6 K/uL (4.3-11.0)
[2018-02-16 07:15] LABS: ALANINE AMINOTRANSFERASE 55 U/L (12-78); ALBUMIN 2.1 g/dL (3.4-5.0); ALKALINE PHOSPHATASE 122 U/L (46-116); ASPARTATE AMINOTRANSFERASE 31 U/L (15-37); BILIRUBIN,TOTAL 0.9 mg/dL (0.2-1.0); CALCIUM, SERUM 8.2 mg/dL (8.5-10.1); CARBON DIOXIDE 29 mmol/L (21-32); CHLORIDE 104 mmol/L (98-107); CREATININE 0.9 mg/dL (0.6-1.3); GLUCOSE 96 mg/dL (74-106); SODIUM SERUM 140 mmol/L (136-145); TOTAL PROTEIN, SERUM 4.7 g/dL (6.4-8.2); UREA NITROGEN, BLOOD 20 mg/dL (7-18)
[2018-02-16] MEDS ORDERED: PANTOPRAZOLE 40 MG TABLET.DR PO SCH (07:30)
[2018-02-16] MEDS: BLOOD SUGAR DIAGNOSTIC 1 EACH STRIP IN SCH ×2 (08:12→11:51)
[2018-02-16] MEDS: ALLOPURINOL 100 MG TABLET PO SCH (08:13)
[2018-02-16] MEDS: LACTOBACILLUS RHAMNOSUS GG 1 EACH CAP.SPRINK PO SCH (08:13)
[2018-02-16] MEDS: INSULIN GLARGINE, 100 UNIT/ML CARTRIDGE SQ SCH (08:15)
[2018-02-16] MEDS: FLUCONAZOLE (100 MG) 100 MG TABLET PO SCH (08:19)
[2018-02-16] MEDS: Z GUARD REMEDY 2 OZ OINT TP SCH (08:22)
[2018-02-16] MEDS: HYDROGEL DRESSING 90 GM TUBE TP PRN (08:22)
[2018-02-16] MEDS: Z GUARD REMEDY 2 OZ OINT TP PRN (08:22)
[2018-02-16] MEDS: HYDROGEL DRESSING 90 GM TUBE TP SCH (08:22)
[2018-02-16] MEDS ORDERED: LOSARTAN POTASSIUM 50 MG TABLET PO SCH (09:00)
[2018-02-16] MEDS ORDERED: CILOSTAZOL 100 MG TABLET PO SCH (09:00)
[2018-02-16] MEDS ORDERED: Insulin Glargine,Hum SQ (11:28)
[2018-02-16] MEDS ORDERED: LOSA50TA3 PO (11:28)
[2018-02-16] MEDS ORDERED: LACT1CAP72 PO (11:28)
[2018-02-16] MEDS ORDERED: FERR325T23 PO (11:28)
[2018-02-16] MEDS ORDERED: HYDR-552 PO (11:28)
[2018-02-16] MEDS ORDERED: INSU100V28 SQ (11:28)
[2018-02-16] MEDS ORDERED: LEVO500T75 PO (11:28)
[2018-02-16] MEDS ORDERED: BISACODYL (5 MG) 5 MG TABLET.DR PO ONE (11:30)
[2018-02-16 12:00] VITALS: BP 133/59
[2018-02-16] MEDS: INSULIN REGULAR, HUMAN 100 UNIT/ML 3 ML VIAL SQ PRN (12:12)
[2018-02-16] MEDS: LEVOFLOXACIN (250MG) 250 MG TABLET PO SCH (15:55)
== END 2018-02-16 16:36 | DRG 853 ==
LOC: ER 22:49 → ICU 02-08 02:46 → TELE-TD 02-09 11:55 → TELE1 02-10 14:50 → ICU 02-14 11:17 → TELE-TD 02-15 18:13 → MEDSG1 02-16 00:23
PROVIDERS: ADMIT Internal Medicine; ATTEND Internal Medicine
PROC: 02HV33Z Insertion of Infusion Device into Superior Vena Cava, Percutaneous Approach (ICD-10-PCS; principal; 2018-02-09)
PROC: B548ZZA Ultrasonography of Superior Vena Cava, Guidance (ICD-10-PCS; 2018-02-09)
PROC: 0FT44ZZ Resection of Gallbladder, Percutaneous Endoscopic Approach (ICD-10-PCS; 2018-02-14)
PROC: 0FB04ZX Excision of Liver, Percutaneous Endoscopic Approach, Diagnostic (ICD-10-PCS; 2018-02-14)
DX: A41.50 Gram-negative sepsis, unspecified (principal); J18.9 Pneumonia, unspecified organism; R65.21 Severe sepsis with septic shock; K81.0 Acute cholecystitis; J96.02 Acute respiratory failure with hypercapnia; I11.0 Hypertensive heart disease with heart failure; J96.01 Acute respiratory failure with hypoxia; E11.51 Type 2 diabetes mellitus with diabetic peripheral angiopathy without gangrene; I50.9 Heart failure, unspecified; J44.0 Chronic obstructive pulmonary disease with (acute) lower respiratory infection; J44.1 Chronic obstructive pulmonary disease with (acute) exacerbation; D64.9 Anemia, unspecified; Z88.1 Allergy status to other antibiotic agents; Z88.2 Allergy status to sulfonamides; Z79.899 Other long term (current) drug therapy; Z79.82 Long term (current) use of aspirin; Z79.4 Long term (current) use of insulin; E83.42 Hypomagnesemia; E78.5 Hyperlipidemia, unspecified; E83.51 Hypocalcemia; G47.33 Obstructive sleep apnea (adult) (pediatric); I70.8 Atherosclerosis of other arteries; K21.9 Gastro-esophageal reflux disease without esophagitis; K59.00 Constipation, unspecified; Z87.440 Personal history of urinary (tract) infections; M10.9 Gout, unspecified; E66.01 Morbid (severe) obesity due to excess calories; Z68.37 Body mass index [BMI] 37.0-37.9, adult
CPT/HCPCS: 36415; 36600; 47532; 71045-TC; 74150-TC; 76705-TC; 78226; 80048-TC; 80053-TC; 80061-TC; 80076-TC; 80202-TC; 81000-TC; 82306; 82728-TC; 82803-TC; 82962-TC; 83540-TC; 83735-TC; 83880; 84100-TC; 84439-TC; 84443-TC; 84484-TC; 85025-TC; 85610-TC; 85730-TC; 86850-TC; 87040-TC; 87081-TC; 87086-TC; 87186-TC; 87400; 88304-TC; 88305-TC; 88307-TC; 88313-TC; 93307-TC; 94760-TC; 94799-TC; 99082-TC; A4216; A4606; A6248; A6402; A9537; C9113; J0360; J1170; J1644; J1815; J1940; J1956; J2185; J2250; J2270; J2405; J2920; J2930; J3010; J3370; J3475; J3490; J7030; J7040; J7050; J7060; Q9966; Q9967; Z7610